=== PATIENT | female | born 1960 | race Caucasian/White ===

== ENCOUNTER 2020-03-11 16:18 | Inpatient (IN) | payer MEDICAID ==
[~2020-03-11] VITALS: Ht 121.9 cm; Wt 51.7 kg
[~2020-03-11 16:18] MED LIST: ACET-3161 GT; FERR-63 PO; HYDR25TA; INSU10VI5 SQ; LEVO50TA8 PO; LORA1TAB PO; PROPANOLOL; VERA180C2 PO
[2020-03-11] MEDS ORDERED: PIPERACILLIN/TAZ 3.375G PREMIX 50 ML IV ONE (17:00)
[2020-03-11] MEDS ORDERED: VANCOMYCIN 1 G PREMIX 200 ML IV ONE (17:00)
[2020-03-11] MEDS ORDERED: ONDANSETRON 4MG ODT PO ONE (17:15)
[2020-03-11] MEDS ORDERED: HYDROCODONE/ACETAMINOPHEN 5/325MG TABLET PO ONE (17:15)
[2020-03-11 17:28] LABS: BASOPHILS % 0.8 % (0.0-2.0); EOSINOPHILS % 3.6 % (0.0-5.0); HEMATOCRIT. 36.5 % (36.0-48.0); LYMPHOCYTES % 18.4 % (20.0-50.0); MEAN CORPUSCULAR HEMOGLOBIN 28.1 pg (28.0-32.0); MEAN PLATELET VOLUME 9.9 fl (7.4-10.4); MONOCYTES % 10.4 % (2.0-8.0); NEUTROPHILS % 66.8 % (40.0-76.0); PLATELET 153 x1000/uL (130-400); RED BLOOD CELL COUNT 4.25 mill/uL (4.2-5.4); RED CELL DISTRIBUTION WIDTH 16.7 % (11.6-14.6)
[2020-03-11 17:34] LABS: CHLORIDE 94 mEq/L (98-107); INR 1.1; PROTHROMBIN TIME 12.3 sec (9.6-11.0)
[2020-03-11] MEDS ORDERED: DOCUSATE SODIUM 100MG CAPSULE PO PRN (19:30)
[2020-03-11] MEDS ORDERED: LORAZEPAM 0.5MG TABLET PO PRN (19:30)
[2020-03-11] MEDS ORDERED: ACETAMINOPHEN 325MG TABLET PO PRN (19:30)
[2020-03-11] MEDS ORDERED: IPRATROPIUM/ALBUTEROL 0.5-3(2.5)MG/3ML NEB HHN PRN (19:30)
[2020-03-11] MEDS ORDERED: CLONIDINE 0.1MG TABLET PO PRN (19:30)
[2020-03-11] MEDS ORDERED: ONDANSETRON HCL 4MG/2ML INJ IV PRN (19:30)
[2020-03-11] MEDS ORDERED: MORPHINE SULFATE 2 MG/ML CPJ (NOT FOR IM USE) IV PRN (19:30)
[2020-03-11 21:00] VITALS: BP 128/78
[2020-03-11 22:00] VITALS: BP 128/78
[2020-03-11] MEDS ORDERED: DEXTROSE 50% WATER 50ML SYRINGE IV PRN (22:15)
[2020-03-12] VITALS: BP 111/56
[2020-03-12 04:00] VITALS: BP 108/53
[2020-03-12] MEDS: BLOOD SUGAR DIAGNOSTIC STRIP TEST SCH ×4 (06:22→20:42)
[2020-03-12 07:22] LABS: HEMATOCRIT. 36.4 % (36.0-48.0); HEMOGLOBIN. 11.8 g/dL (12.0-16.0); MEAN CORPUSCULAR HEMOGLOBIN 27.9 pg (28.0-32.0); MEAN CORPUSCULAR VOLUME 86.4 fL (81.0-99.0); MEAN PLATELET VOLUME 10.3 fl (7.4-10.4); PLATELET 141 x1000/uL (130-400); RED BLOOD CELL COUNT 4.21 mill/uL (4.2-5.4); RED CELL DISTRIBUTION WIDTH 16.8 % (11.6-14.6)
[2020-03-12] MEDS: INSULIN LISPRO 100 UNITS/ML SUBCUT SCH ×4 (07:50→21:01)
[2020-03-12 08:00] VITALS: BP 95/46
[2020-03-12 12:00] VITALS: BP 100/47
[2020-03-12] MEDS: VERAPAMIL HCL 80 MG TABLET PO SCH ×2 (13:00→21:08)
[2020-03-12] MEDS ORDERED: INSULIN GLARGINE UD 100 UNITS/ML SYR SUBCUT SCH (14:00)
[2020-03-12 16:00] VITALS: BP 103/52
[2020-03-12 16:42] LABS: PLATELET ESTIMATE NORMAL
[2020-03-12 20:00] VITALS: BP 101/52
[2020-03-13] VITALS: BP 93/48
[2020-03-13 04:00] VITALS: BP 100/48
[2020-03-13] MEDS: LEVOTHYROXINE SODIUM 50MCG TABLET PO SCH (06:24)
[2020-03-13] MEDS: BLOOD SUGAR DIAGNOSTIC STRIP TEST SCH ×4 (06:28→20:27)
[2020-03-13 06:49] LABS: BASOPHILS % 0.5 % (0.0-2.0); EOSINOPHILS % 6.6 % (0.0-5.0); HEMATOCRIT. 37.4 % (36.0-48.0); HEMOGLOBIN. 12.1 g/dL (12.0-16.0); LYMPHOCYTES % 15.3 % (20.0-50.0); MEAN CORPUSCULAR HEMOGLOBIN 27.9 pg (28.0-32.0); MEAN CORPUSCULAR VOLUME 86.4 fL (81.0-99.0); MEAN PLATELET VOLUME 9.7 fl (7.4-10.4); MONOCYTES % 8.3 % (2.0-8.0); NEUTROPHILS % 69.3 % (40.0-76.0); PLATELET 135 x1000/uL (130-400); RED BLOOD CELL COUNT 4.33 mill/uL (4.2-5.4); RED CELL DISTRIBUTION WIDTH 16.6 % (11.6-14.6)
[2020-03-13] MEDS: INSULIN LISPRO 100 UNITS/ML SUBCUT SCH ×4 (07:50→20:27)
[2020-03-13 08:00] VITALS: BP 102/43
[2020-03-13] MEDS: VERAPAMIL HCL 80 MG TABLET PO SCH ×2 (08:30→20:27)
[2020-03-13 12:00] VITALS: BP 109/53
[2020-03-13] MEDS: INSULIN GLARGINE UD 100 UNITS/ML SYR SUBCUT SCH (14:44)
[2020-03-13 16:00] VITALS: BP 105/52
[2020-03-13] MEDS: HYDROCODONE/ACETAMINOPHEN 5/325MG TABLET PO PRN (16:17)
[2020-03-13 20:00] VITALS: BP 93/46
[2020-03-14] VITALS: BP 106/49
[2020-03-14 04:00] VITALS: BP 97/49
[2020-03-14] MEDS: LEVOTHYROXINE SODIUM 50MCG TABLET PO SCH (06:09)
[2020-03-14] MEDS: HYDROCODONE/ACETAMINOPHEN 5/325MG TABLET PO PRN ×2 (06:11→18:08)
[2020-03-14] MEDS: BLOOD SUGAR DIAGNOSTIC STRIP TEST SCH ×3 (06:14→17:31)
[2020-03-14] MEDS: INSULIN LISPRO 100 UNITS/ML SUBCUT SCH ×3 (06:14→17:31)
[2020-03-14 06:36] LABS: EOSINOPHILS % 10.3 % (0.0-5.0); HEMATOCRIT. 37.1 % (36.0-48.0); LYMPHOCYTES % 19.8 % (20.0-50.0); MEAN CORPUSCULAR HEMOGLOBIN 27.9 pg (28.0-32.0); MEAN CORPUSCULAR VOLUME 86.7 fL (81.0-99.0); MEAN PLATELET VOLUME 10.1 fl (7.4-10.4); MONOCYTES % 9.4 % (2.0-8.0); NEUTROPHILS % 59.5 % (40.0-76.0); PLATELET 142 x1000/uL (130-400); RED BLOOD CELL COUNT 4.28 mill/uL (4.2-5.4); RED CELL DISTRIBUTION WIDTH 17.1 % (11.6-14.6)
[2020-03-14] MEDS: VERAPAMIL HCL 80 MG TABLET PO SCH (09:00)
[2020-03-14] MEDS: INSULIN GLARGINE UD 100 UNITS/ML SYR SUBCUT SCH (11:05)
[2020-03-14 12:00] VITALS: BP 100/46
[2020-03-14 16:00] VITALS: BP 108/51
[2020-03-14 16:27] VITALS: BP 108/51
[2020-03-14 18:08] VITALS: BP 108/51
[2020-03-15] MEDS ORDERED: HYDR-4001 MT (12:03)
== END 2020-03-14 18:46 | disposition home or self-care (01) | DRG 197 ==
LOC: ER 16:18 → 6EST 17:36 → EDBEDREQ 17:39 → EDBEDREQTM 17:39 → ENRESERV 20:10
PROVIDERS: ADMIT Internal Medicine; ATTEND Internal Medicine
PROC: 5A1D70Z Performance of Urinary Filtration, Intermittent, Less than 6 Hours Per Day (ICD-10-PCS; principal; 2020-03-12)
PROC: 5A1D70Z Performance of Urinary Filtration, Intermittent, Less than 6 Hours Per Day (ICD-10-PCS; 2020-03-14)
DX: E11.52 Type 2 diabetes mellitus with diabetic peripheral angiopathy with gangrene (principal); I96 Gangrene, not elsewhere classified; E11.22 Type 2 diabetes mellitus with diabetic chronic kidney disease; I12.0 Hypertensive chronic kidney disease with stage 5 chronic kidney disease or end stage renal disease; N18.6 End stage renal disease; E11.65 Type 2 diabetes mellitus with hyperglycemia; E03.9 Hypothyroidism, unspecified; R79.82 Elevated C-reactive protein (CRP); D64.9 Anemia, unspecified; E87.1 Hypo-osmolality and hyponatremia; Z99.2 Dependence on renal dialysis; Z79.4 Long term (current) use of insulin; Z89.512 Acquired absence of left leg below knee; Z79.899 Other long term (current) drug therapy; Z83.3 Family history of diabetes mellitus; Z89.611 Acquired absence of right leg above knee
CPT/HCPCS: 36415; 71045; 73140; 80048; 80053; 82962; 83036; 83605; 84145; 85025; 85651; 86140; 93005; 93922; 96365; 99285; J1815; J2543; J3370; Q0162

== ENCOUNTER 2020-05-26 16:31 | Inpatient (IN) | payer MEDICAID ==
[~2020-05-26] VITALS: Ht 152.4 cm; Wt 53.5 kg
[~2020-05-26 16:31] MED LIST changes: +HYDR-4001 MT
[2020-05-26 17:32] LABS: BASOPHILS % 0.6 % (0.0-2.0); EOSINOPHILS % 2.2 % (0.0-5.0); HEMATOCRIT. 47.6 % (36.0-48.0); LYMPHOCYTES % 7.8 % (20.0-50.0); MEAN CORPUSCULAR HEMOGLOBIN 27.6 pg (28.0-32.0); MEAN CORPUSCULAR VOLUME 87.6 fL (81.0-99.0); MEAN PLATELET VOLUME 10.3 fl (7.4-10.4); MONOCYTES % 4.9 % (2.0-8.0); NEUTROPHILS % 84.5 % (40.0-76.0); PLATELET 204 x1000/uL (130-400); RED BLOOD CELL COUNT 5.44 mill/uL (4.2-5.4); RED CELL DISTRIBUTION WIDTH 18.3 % (11.6-14.6)
[2020-05-26] MEDS ORDERED: AZITHROMYCIN 500 MG in DEXT 5% WATER 250 ML IV STA (17:42)
[2020-05-26] MEDS ORDERED: CEFTRIAXONE 1 G PREMIX 50 ML IV ONE (17:45)
[2020-05-26 18:45] LABS: CHLORIDE 97 mEq/L (98-107)
[2020-05-26 18:47] LABS: D-DIMER 2.32 mg/L FEU (<0.50); INR 1.4; PROTHROMBIN TIME 14.6 sec (9.6-11.0)
[2020-05-26 18:54] LABS: CREATINE KINASE 71 IU/L (26-192)
[2020-05-26 20:35] VITALS: BP 74/48
[2020-05-26 21:06] VITALS: BP 74/47
[2020-05-26] MEDS ORDERED: LORAZEPAM 0.5MG TABLET PO PRN (23:45)
[2020-05-26] MEDS ORDERED: HYDROCODONE/ACETAMINOPHEN 5/325MG TABLET PO PRN (23:45)
[2020-05-26] MEDS ORDERED: ACETAMINOPHEN 325MG TABLET PO PRN (23:45)
[2020-05-26] MEDS ORDERED: DOCUSATE SODIUM 100MG CAPSULE PO PRN (23:45)
[2020-05-26] MEDS ORDERED: IPRATROPIUM/ALBUTEROL 0.5-3(2.5)MG/3ML NEB HHN PRN (23:45)
[2020-05-26] MEDS ORDERED: CLONIDINE 0.1MG TABLET PO PRN (23:45)
[2020-05-26 23:53] VITALS: BP 81/41
[2020-05-27] MEDS ORDERED: DEXTROSE 50% WATER 50ML SYRINGE IV PRN (00:15)
[2020-05-27] MEDS: SODIUM CHLORIDE 0.9% 1,000 ML IV SCH ×2 (00:39→11:37)
[2020-05-27] MEDS: ACETAMINOPHEN 325MG TABLET PO PRN ×3 (00:58→16:25)
[2020-05-27] MEDS: PIPERACILLIN/TAZOBACTAM 2.25 G in DEXTROSE 5% WATER 50 ML IV SCH ×2 (02:29→09:05)
[2020-05-27 04:00] VITALS: BP 92/51
[2020-05-27] MEDS ORDERED: PIPERACILLIN/TAZOBACTAM 3.375 G/VIAL IV SCH (06:00)
[2020-05-27] MEDS: BLOOD SUGAR DIAGNOSTIC STRIP TEST SCH ×4 (07:08→21:00)
[2020-05-27] MEDS: INSULIN LISPRO 100 UNITS/ML SUBCUT SCH ×4 (07:28→21:00)
[2020-05-27] MEDS: ENOXAPARIN 30MG/0.3ML SYR SUBCUT SCH (08:27)
[2020-05-27 08:30] VITALS: BP 92/49
[2020-05-27 09:41] LABS: BASOPHILS % 0.7 % (0.0-2.0); EOSINOPHILS % 5.2 % (0.0-5.0); HEMOGLOBIN. 13.4 g/dL (12.0-16.0); LYMPHOCYTES % 14.4 % (20.0-50.0); MEAN CORPUSCULAR HEMOGLOBIN 27.9 pg (28.0-32.0); MEAN CORPUSCULAR VOLUME 87.8 fL (81.0-99.0); MONOCYTES % 7.7 % (2.0-8.0); PLATELET 156 x1000/uL (130-400); RED BLOOD CELL COUNT 4.79 mill/uL (4.2-5.4); RED CELL DISTRIBUTION WIDTH 17.1 % (11.6-14.6)
[2020-05-27 10:03] LABS: PHOSPHORUS 3.3 mg/dL (2.5-4.9)
[2020-05-27] MEDS: ONDANSETRON HCL 4MG/2ML INJ IV PRN ×2 (11:37→16:58)
[2020-05-27 12:00] VITALS: BP 103/53
[2020-05-27] MEDS: AZITHROMYCIN 500 MG TABLET PO SCH (14:20)
[2020-05-27] MEDS ORDERED: CEFTRIAXONE 1 G PREMIX 50 ML IV SCH (15:00)
[2020-05-27 16:00] VITALS: BP 116/78
[2020-05-27] MEDS: MORPHINE SULFATE 2 MG/ML CPJ (NOT FOR IM USE) IV PRN (16:58)
[2020-05-27 20:41] VITALS: BP 106/56
[2020-05-28] VITALS: BP 105/51
[2020-05-28] MEDS: ACETAMINOPHEN 325MG TABLET PO PRN (02:02)
[2020-05-28 04:00] VITALS: BP 94/45
[2020-05-28 06:11] LABS: BASOPHILS % 0.7 % (0.0-2.0); HEMATOCRIT. 41.3 % (36.0-48.0); HEMOGLOBIN. 13.1 g/dL (12.0-16.0); LYMPHOCYTES % 12.3 % (20.0-50.0); MEAN CORPUSCULAR HEMOGLOBIN 27.8 pg (28.0-32.0); MEAN CORPUSCULAR VOLUME 87.7 fL (81.0-99.0); MEAN PLATELET VOLUME 10.5 fl (7.4-10.4); PLATELET 164 x1000/uL (130-400); RED CELL DISTRIBUTION WIDTH 17.6 % (11.6-14.6)
[2020-05-28] MEDS: LEVOTHYROXINE SODIUM 50MCG TABLET PO SCH (06:36)
[2020-05-28] MEDS: BLOOD SUGAR DIAGNOSTIC STRIP TEST SCH ×4 (07:46→21:29)
[2020-05-28 08:00] VITALS: BP 124/61
[2020-05-28] MEDS: ENOXAPARIN 30MG/0.3ML SYR SUBCUT SCH (09:00)
[2020-05-28] MEDS: AZITHROMYCIN 500 MG TABLET PO SCH (09:15)
[2020-05-28] MEDS: INSULIN LISPRO 100 UNITS/ML SUBCUT SCH ×4 (09:16→21:00)
[2020-05-28] MEDS: MORPHINE SULFATE 2 MG/ML CPJ (NOT FOR IM USE) IV PRN (09:31)
[2020-05-28 12:00] VITALS: BP 105/51
[2020-05-28 16:00] VITALS: BP 75/28
[2020-05-28] MEDS ORDERED: MIDODRINE HCL 5MG TABLET PO NR (17:15)
[2020-05-28] MEDS ORDERED: ALBUMIN HUMAN 25GM/100ML (25%) IV NR (18:00)
[2020-05-28 20:00] VITALS: BP 91/40
[2020-05-29] VITALS (7 sets, daily range): BP systolic 85–98; BP diastolic 41–44
[2020-05-29] MEDS: LEVOTHYROXINE SODIUM 50MCG TABLET PO SCH (06:11)
[2020-05-29 06:18] LABS: BASOPHILS % 0.4 % (0.0-2.0); EOSINOPHILS % 0.8 % (0.0-5.0); HEMATOCRIT. 41.2 % (36.0-48.0); HEMOGLOBIN. 13.2 g/dL (12.0-16.0); MEAN CORPUSCULAR VOLUME 87.6 fL (81.0-99.0); MEAN PLATELET VOLUME 9.9 fl (7.4-10.4); MONOCYTES % 7.6 % (2.0-8.0); NEUTROPHILS % 83.2 % (40.0-76.0); PLATELET 162 x1000/uL (130-400); RED CELL DISTRIBUTION WIDTH 17.3 % (11.6-14.6)
[2020-05-29] MEDS: INSULIN LISPRO 100 UNITS/ML SUBCUT SCH ×4 (06:19→20:37)
[2020-05-29] MEDS: BLOOD SUGAR DIAGNOSTIC STRIP TEST SCH ×4 (06:19→20:37)
[2020-05-29 06:39] LABS: PHOSPHORUS 3.6 mg/dL (2.5-4.9)
[2020-05-29 06:42] LABS: T4 FREE 0.98 ng/dL (0.76-1.46)
[2020-05-29] MEDS: ONDANSETRON HCL 4MG/2ML INJ IV PRN (07:32)
[2020-05-29] MEDS: ENOXAPARIN 30MG/0.3ML SYR SUBCUT SCH (09:06)
[2020-05-29] MEDS: ACETAMINOPHEN 325MG TABLET PO PRN (16:31)
[2020-05-29] MEDS ORDERED: ALBUMIN HUMAN 25GM/100ML (25%) IV NR (18:30)
[2020-05-30] VITALS (7 sets, daily range): BP systolic 70–105; BP diastolic 33–65
[2020-05-30] MEDS: LEVOTHYROXINE SODIUM 50MCG TABLET PO SCH (06:19)
[2020-05-30] MEDS: BLOOD SUGAR DIAGNOSTIC STRIP TEST SCH ×4 (06:19→21:33)
[2020-05-30 06:24] LABS: BASOPHILS % 0.7 % (0.0-2.0); EOSINOPHILS % 1.4 % (0.0-5.0); HEMATOCRIT. 36.9 % (36.0-48.0); HEMOGLOBIN. 11.8 g/dL (12.0-16.0); LYMPHOCYTES % 21.7 % (20.0-50.0); MEAN CORPUSCULAR HEMOGLOBIN 28.4 pg (28.0-32.0); MEAN CORPUSCULAR VOLUME 88.9 fL (81.0-99.0); MEAN PLATELET VOLUME 10.2 fl (7.4-10.4); NEUTROPHILS % 66.2 % (40.0-76.0); PLATELET 141 x1000/uL (130-400); RED BLOOD CELL COUNT 4.14 mill/uL (4.2-5.4); RED CELL DISTRIBUTION WIDTH 17.7 % (11.6-14.6)
[2020-05-30] MEDS: ENOXAPARIN 30MG/0.3ML SYR SUBCUT SCH (08:20)
[2020-05-30] MEDS: INSULIN LISPRO 100 UNITS/ML SUBCUT SCH ×4 (08:21→21:00)
[2020-05-30 08:59] LABS: TOTAL IRON BINDING CAPACITY 172 ug/dL (250-450)
[2020-05-30] MEDS: MIDODRINE HCL 5MG TABLET PO SCH ×3 (10:40→17:42)
[2020-05-30] MEDS: PANTOPRAZOLE SODIUM 40 MG/VIAL IV SCH (10:40)
[2020-05-30] MEDS: MORPHINE SULFATE 2 MG/ML CPJ (NOT FOR IM USE) IV PRN (20:11)
[2020-05-31] VITALS (42 sets, daily range): BP systolic 36–158; BP diastolic 20–109
[2020-05-31] MEDS: BLOOD SUGAR DIAGNOSTIC STRIP TEST SCH ×5 (05:57→21:48)
[2020-05-31] MEDS: INSULIN LISPRO 100 UNITS/ML SUBCUT SCH ×5 (05:57→22:01)
[2020-05-31] MEDS: LEVOTHYROXINE SODIUM 50MCG TABLET PO SCH (06:07)
[2020-05-31 07:07] LABS: BASOPHILS % 0.3 % (0.0-2.0); EOSINOPHILS % 0.3 % (0.0-5.0); HEMATOCRIT. 40.5 % (36.0-48.0); HEMOGLOBIN. 12.8 g/dL (12.0-16.0); LYMPHOCYTES % 14.1 % (20.0-50.0); MEAN CORPUSCULAR HEMOGLOBIN 28.3 pg (28.0-32.0); MEAN CORPUSCULAR VOLUME 89.8 fL (81.0-99.0); MEAN PLATELET VOLUME 10.4 fl (7.4-10.4); MONOCYTES % 7.3 % (2.0-8.0); PLATELET 202 x1000/uL (130-400); RED BLOOD CELL COUNT 4.51 mill/uL (4.2-5.4); RED CELL DISTRIBUTION WIDTH 17.6 % (11.6-14.6)
[2020-05-31] MEDS: ENOXAPARIN 30MG/0.3ML SYR SUBCUT SCH (09:07)
[2020-05-31] MEDS: PANTOPRAZOLE SODIUM 40 MG/VIAL IV SCH (09:07)
[2020-05-31] MEDS: MIDODRINE HCL 5MG TABLET PO SCH ×3 (09:08→17:21)
[2020-05-31] MEDS ORDERED: ALBUMIN HUMAN 25GM/100ML (25%) IV NR (10:30)
[2020-05-31] MEDS ORDERED: NOREPINEPHRINE 4MG/250ML PMX 250 ML IV ONE (11:00)
[2020-05-31] MEDS ORDERED: DEXT 10% WATER 1,000 ML IV SCH ×3 (11:45→12:00)
[2020-05-31 11:59] LABS: BG BASE EXCESS -8.9 mmol/L (-2.0-2.0); BG CARBOXYHEMOGLOBIN 0.8 % (0.5-1.5); BG DEOXYHEMOGLOBIN 7.4 % (0.0-5.0); BG FRACTION INSPIRED OXYGEN 21; BG HCO3 ACT 17.3 mmol/L (22.0-26.0); BG METHEMOGLOBIN 0.2 % (0.0-1.5); BG OXYGEN SATURATION 92.5 % (92.0-98.5); BG OXYHEMOGLOBIN 91.6 % (94.0-97.0); BG PCO2 38.4 mmHg (35.0-45.0); BG PH 7.271 (7.350-7.450); BG PO2 71.9 mmHg (75.0-100.0); BG SAMPLE SITE RIGHT BRACHIAL; BG TOTAL HEMOGLOBIN 12.8 g/dL (12.0-18.0); BG VENT MODE ROOM AIR
[2020-05-31] MEDS ORDERED: NOREPINEPHRINE 4 MG in DEXTROSE 5% WATER 250 ML IV PRN (12:15)
[2020-05-31] MEDS ORDERED: SODIUM BICARBONATE 8.4% 1 MEQ/ML 50ML SYR IV NR (14:00)
[2020-05-31] MEDS: SODIUM BICARBONATE 100 MEQ in DEXTROSE 5% WATER 1,000 ML IV SCH (15:05)
[2020-05-31] MEDS: AZITHROMYCIN 500 MG in DEXT 5% WATER 250 ML IV SCH (17:20)
[2020-06-01] VITALS (97 sets, daily range): BP systolic 60–156; BP diastolic 16–101
[2020-06-01 06:18] LABS: BASOPHILS % 0.4 % (0.0-2.0); EOSINOPHILS % 0.8 % (0.0-5.0); HEMATOCRIT. 41.4 % (36.0-48.0); LYMPHOCYTES % 15.2 % (20.0-50.0); MEAN CORPUSCULAR HEMOGLOBIN 27.8 pg (28.0-32.0); MEAN CORPUSCULAR VOLUME 88.8 fL (81.0-99.0); MEAN PLATELET VOLUME 9.3 fl (7.4-10.4); MONOCYTES % 9.2 % (2.0-8.0); NEUTROPHILS % 74.4 % (40.0-76.0); PLATELET 167 x1000/uL (130-400); RED BLOOD CELL COUNT 4.66 mill/uL (4.2-5.4); RED CELL DISTRIBUTION WIDTH 17.8 % (11.6-14.6)
[2020-06-01] MEDS: BLOOD SUGAR DIAGNOSTIC STRIP TEST SCH ×4 (07:25→21:16)
[2020-06-01] MEDS: INSULIN LISPRO 100 UNITS/ML SUBCUT SCH ×4 (07:26→21:00)
[2020-06-01] MEDS: LEVOTHYROXINE SODIUM 50MCG TABLET PO SCH (07:50)
[2020-06-01] MEDS: MIDODRINE HCL 5MG TABLET PO SCH ×3 (08:06→16:13)
[2020-06-01] MEDS: ENOXAPARIN 30MG/0.3ML SYR SUBCUT SCH (08:06)
[2020-06-01] MEDS: PANTOPRAZOLE SODIUM 40 MG/VIAL IV SCH (09:06)
[2020-06-01] MEDS: NOREPINEPHRINE 16 MG in DEXT 5% WATER 234 ML IV PRN (10:38)
[2020-06-01 11:08] LABS: INR 1.8; PARTIAL THROMBOPLASTIN TIME 41.1 sec (23.4-31.0); PROTHROMBIN TIME 18.7 sec (9.6-11.0)
[2020-06-01] MEDS: AZITHROMYCIN 500 MG in DEXT 5% WATER 250 ML IV SCH (16:13)
[2020-06-01] MEDS ORDERED: PHYTONADIONE 10MG/ML AMP SUBCUT NR (18:00)
[2020-06-01] MEDS: SODIUM BICARBONATE 100 MEQ in DEXTROSE 5% WATER 1,000 ML IV SCH (21:06)
[2020-06-02] VITALS (100 sets, daily range): BP systolic 60–201; BP diastolic 14–131
[2020-06-02 06:35] LABS: BASOPHILS % 0.2 % (0.0-2.0); EOSINOPHILS % 1.1 % (0.0-5.0); HEMATOCRIT. 36.5 % (36.0-48.0); HEMOGLOBIN. 11.6 g/dL (12.0-16.0); LYMPHOCYTES % 15.3 % (20.0-50.0); MEAN CORPUSCULAR VOLUME 87.9 fL (81.0-99.0); MONOCYTES % 9.7 % (2.0-8.0); NEUTROPHILS % 73.7 % (40.0-76.0); PLATELET 151 x1000/uL (130-400); RED BLOOD CELL COUNT 4.15 mill/uL (4.2-5.4); RED CELL DISTRIBUTION WIDTH 17.5 % (11.6-14.6)
[2020-06-02 06:44] LABS: INR 1.6; PROTHROMBIN TIME 16.3 sec (9.6-11.0)
[2020-06-02] MEDS: INSULIN LISPRO 100 UNITS/ML SUBCUT SCH ×4 (07:18→20:55)
[2020-06-02] MEDS: BLOOD SUGAR DIAGNOSTIC STRIP TEST SCH ×4 (07:18→20:55)
[2020-06-02] MEDS: LEVOTHYROXINE SODIUM 50MCG TABLET PO SCH (07:50)
[2020-06-02] MEDS: PANTOPRAZOLE SODIUM 40 MG/VIAL IV SCH (08:13)
[2020-06-02] MEDS: ENOXAPARIN 30MG/0.3ML SYR SUBCUT SCH (09:00)
[2020-06-02] MEDS: MIDODRINE HCL 5MG TABLET PO SCH ×3 (09:50→17:16)
[2020-06-02] MEDS: NOREPINEPHRINE 16 MG in DEXT 5% WATER 234 ML IV PRN (11:10)
[2020-06-02] MEDS: ACETAMINOPHEN 325MG TABLET PO PRN (15:49)
[2020-06-02] MEDS: AZITHROMYCIN 500 MG in DEXT 5% WATER 250 ML IV SCH (16:24)
[2020-06-02] MEDS: SODIUM BICARBONATE 100 MEQ in DEXTROSE 5% WATER 1,000 ML IV SCH (20:57)
[2020-06-03] VITALS (88 sets, daily range): BP systolic 57–156; BP diastolic 18–114
[2020-06-03 06:32] LABS: BASOPHILS % 0.6 % (0.0-2.0); EOSINOPHILS % 3.9 % (0.0-5.0); HEMATOCRIT. 36.7 % (36.0-48.0); HEMOGLOBIN. 11.6 g/dL (12.0-16.0); LYMPHOCYTES % 17.6 % (20.0-50.0); MEAN CORPUSCULAR HEMOGLOBIN 27.7 pg (28.0-32.0); MEAN CORPUSCULAR VOLUME 87.8 fL (81.0-99.0); MEAN PLATELET VOLUME 8.5 fl (7.4-10.4); MONOCYTES % 5.7 % (2.0-8.0); NEUTROPHILS % 72.2 % (40.0-76.0); PLATELET 106 x1000/uL (130-400); RED BLOOD CELL COUNT 4.18 mill/uL (4.2-5.4); RED CELL DISTRIBUTION WIDTH 17.9 % (11.6-14.6)
[2020-06-03] MEDS: BLOOD SUGAR DIAGNOSTIC STRIP TEST SCH ×4 (08:20→20:17)
[2020-06-03] MEDS: INSULIN LISPRO 100 UNITS/ML SUBCUT SCH ×4 (08:20→20:23)
[2020-06-03] MEDS: PANTOPRAZOLE SODIUM 40 MG/VIAL IV SCH (08:29)
[2020-06-03] MEDS: LEVOTHYROXINE SODIUM 50MCG TABLET PO SCH (08:30)
[2020-06-03] MEDS: ENOXAPARIN 30MG/0.3ML SYR SUBCUT SCH (08:30)
[2020-06-03] MEDS: MIDODRINE HCL 5MG TABLET PO SCH ×3 (08:31→16:39)
[2020-06-03] MEDS ORDERED: POTASSIUM CHLORIDE 20MEQ TABLET SR PO SCH (10:00)
[2020-06-03] MEDS: AZITHROMYCIN 500 MG in DEXT 5% WATER 250 ML IV SCH (16:40)
[2020-06-04] VITALS (89 sets, daily range): BP systolic 50–178; BP diastolic 23–119
[2020-06-04] MEDS: SODIUM BICARBONATE 100 MEQ in DEXTROSE 5% WATER 1,000 ML IV SCH (01:52)
[2020-06-04 05:49] LABS: BASOPHILS % 0.5 % (0.0-2.0); EOSINOPHILS % 3.6 % (0.0-5.0); HEMATOCRIT. 37.8 % (36.0-48.0); HEMOGLOBIN. 12.1 g/dL (12.0-16.0); LYMPHOCYTES % 15.8 % (20.0-50.0); MEAN CORPUSCULAR HEMOGLOBIN 28.2 pg (28.0-32.0); MEAN CORPUSCULAR VOLUME 88.2 fL (81.0-99.0); MEAN PLATELET VOLUME 8.6 fl (7.4-10.4); MONOCYTES % 6.2 % (2.0-8.0); NEUTROPHILS % 73.9 % (40.0-76.0); PLATELET 94 x1000/uL (130-400); RED BLOOD CELL COUNT 4.28 mill/uL (4.2-5.4); RED CELL DISTRIBUTION WIDTH 17.5 % (11.6-14.6)
[2020-06-04] MEDS: NOREPINEPHRINE 16 MG in DEXT 5% WATER 234 ML IV PRN (06:35)
[2020-06-04] MEDS: BLOOD SUGAR DIAGNOSTIC STRIP TEST SCH ×4 (08:14→21:30)
[2020-06-04] MEDS: INSULIN LISPRO 100 UNITS/ML SUBCUT SCH ×4 (08:55→21:00)
[2020-06-04] MEDS: PANTOPRAZOLE SODIUM 40 MG/VIAL IV SCH (08:56)
[2020-06-04] MEDS: MIDODRINE HCL 5MG TABLET PO SCH ×3 (08:56→17:57)
[2020-06-04] MEDS: LEVOTHYROXINE SODIUM 50MCG TABLET PO SCH (08:56)
[2020-06-04] MEDS: ENOXAPARIN 30MG/0.3ML SYR SUBCUT SCH (09:31)
[2020-06-04] MEDS: AZITHROMYCIN 500 MG in DEXT 5% WATER 250 ML IV SCH (16:33)
[2020-06-04] MEDS: MORPHINE SULFATE 2 MG/ML CPJ (NOT FOR IM USE) IV PRN (23:19)
[2020-06-05] VITALS (94 sets, daily range): BP systolic 35–161; BP diastolic 13–113
[2020-06-05] MEDS: SODIUM BICARBONATE 100 MEQ in DEXTROSE 5% WATER 1,000 ML IV SCH (06:14)
[2020-06-05] MEDS: MORPHINE SULFATE 2 MG/ML CPJ (NOT FOR IM USE) IV PRN ×2 (06:35→20:59)
[2020-06-05 06:46] LABS: HEMATOCRIT 40.5 % (36.0-48.0); HEMOGLOBIN 12.7 g/dL (12.0-16.0); MEAN CORPUSCULAR HEMOGLOBIN 27.8 pg (28.0-32.0); MEAN CORPUSCULAR VOLUME 88.9 fL (81.0-99.0); PLATELET 94 x1000/uL (130-400); RED BLOOD CELL COUNT 4.55 mill/uL (4.2-5.4); RED CELL DISTRIBUTION WIDTH 17.8 % (11.6-14.6)
[2020-06-05] MEDS: BLOOD SUGAR DIAGNOSTIC STRIP TEST SCH ×4 (07:50→20:31)
[2020-06-05] MEDS: PANTOPRAZOLE SODIUM 40 MG/VIAL IV SCH (08:14)
[2020-06-05] MEDS: LEVOTHYROXINE SODIUM 50MCG TABLET PO SCH (08:15)
[2020-06-05] MEDS: MIDODRINE HCL 5MG TABLET PO SCH ×3 (08:16→17:36)
[2020-06-05] MEDS: ENOXAPARIN 30MG/0.3ML SYR SUBCUT SCH (08:17)
[2020-06-05] MEDS: INSULIN LISPRO 100 UNITS/ML SUBCUT SCH ×4 (08:18→20:36)
[2020-06-05] MEDS: NOREPINEPHRINE 16 MG in DEXT 5% WATER 234 ML IV PRN (11:52)
[2020-06-06] VITALS (107 sets, daily range): BP systolic 53–148; BP diastolic 14–110
[2020-06-06] MEDS: MORPHINE SULFATE 2 MG/ML CPJ (NOT FOR IM USE) IV PRN ×3 (03:34→20:09)
[2020-06-06 05:39] LABS: BASOPHILS % 0.5 % (0.0-2.0); EOSINOPHILS % 7.4 % (0.0-5.0); HEMATOCRIT. 36.5 % (36.0-48.0); HEMOGLOBIN. 11.5 g/dL (12.0-16.0); LYMPHOCYTES % 7.4 % (20.0-50.0); MEAN CORPUSCULAR VOLUME 88.6 fL (81.0-99.0); MEAN PLATELET VOLUME 9.2 fl (7.4-10.4); MONOCYTES % 5.5 % (2.0-8.0); NEUTROPHILS % 79.2 % (40.0-76.0); PLATELET 74 x1000/uL (130-400); RED BLOOD CELL COUNT 4.11 mill/uL (4.2-5.4); RED CELL DISTRIBUTION WIDTH 17.8 % (11.6-14.6)
[2020-06-06] MEDS: BLOOD SUGAR DIAGNOSTIC STRIP TEST SCH ×4 (08:06→21:06)
[2020-06-06] MEDS: INSULIN LISPRO 100 UNITS/ML SUBCUT SCH ×4 (08:06→21:07)
[2020-06-06] MEDS: LEVOTHYROXINE SODIUM 50MCG TABLET PO SCH (08:06)
[2020-06-06] MEDS: PANTOPRAZOLE SODIUM 40 MG/VIAL IV SCH (08:30)
[2020-06-06] MEDS: MULTIVITAMINS,THER W-MINERALS TABLET PO SCH (08:30)
[2020-06-06] MEDS: MIDODRINE HCL 5MG TABLET PO SCH ×2 (08:31→13:11)
[2020-06-06] MEDS: ENOXAPARIN 30MG/0.3ML SYR SUBCUT SCH (08:31)
[2020-06-06] MEDS: HYDROCODONE/ACETAMINOPHEN 5/325MG TABLET PO PRN (13:12)
[2020-06-06] MEDS ORDERED: DOPAMINE 400MG/250ML PREMIX 250 ML IV NR (16:45)
[2020-06-06] MEDS: DOBUTAMINE 250MG PREMIX 250 ML IV PRN (17:00)
[2020-06-06] MEDS ORDERED: PHENYLEPHRINE 10 MG in DEXT 5% WATER 249 ML IV PRN (17:45)
[2020-06-06] MEDS: PHENYLEPHRINE 80 MG in DEXT 5% WATER 492 ML IV PRN (20:10)
[2020-06-06] MEDS: ATORVASTATIN CALCIUM 40MG TABLET PO SCH (21:06)
[2020-06-07] VITALS (102 sets, daily range): BP systolic 68–174; BP diastolic 16–145
[2020-06-07] MEDS ORDERED: CEFTRIAXONE 1 G PREMIX 50 ML IV SCH (02:00)
[2020-06-07] MEDS: CEFTRIAXONE 1,000 MG in DEXTROSE 5% WATER 50 ML IV SCH (02:38)
[2020-06-07] MEDS: DOXYCYCLINE 100 MG in DEXT 5% WATER 100 ML IV SCH ×2 (03:31→16:19)
[2020-06-07] MEDS: MORPHINE SULFATE 2 MG/ML CPJ (NOT FOR IM USE) IV PRN ×2 (03:53→13:36)
[2020-06-07] MEDS: HYDROCODONE/ACETAMINOPHEN 5/325MG TABLET PO PRN (04:43)
[2020-06-07] MEDS: PHENYLEPHRINE 80 MG in DEXT 5% WATER 492 ML IV PRN ×2 (08:18→17:19)
[2020-06-07] MEDS: BLOOD SUGAR DIAGNOSTIC STRIP TEST SCH ×4 (08:21→20:23)
[2020-06-07] MEDS: MULTIVITAMINS,THER W-MINERALS TABLET PO SCH (08:27)
[2020-06-07] MEDS: INSULIN LISPRO 100 UNITS/ML SUBCUT SCH ×4 (08:27→20:26)
[2020-06-07] MEDS: PANTOPRAZOLE SODIUM 40 MG/VIAL IV SCH (08:27)
[2020-06-07] MEDS: LEVOTHYROXINE SODIUM 50MCG TABLET PO SCH (08:27)
[2020-06-07 09:34] LABS: HEMATOCRIT. 36.8 % (36.0-48.0); HEMOGLOBIN. 11.6 g/dL (12.0-16.0); MEAN CORPUSCULAR HEMOGLOBIN 28.4 pg (28.0-32.0); MEAN CORPUSCULAR VOLUME 89.8 fL (81.0-99.0); MEAN PLATELET VOLUME 9.3 fl (7.4-10.4); PLATELET 65 x1000/uL (130-400)
[2020-06-07] MEDS: DOCUSATE SODIUM 250MG CAPSULE PO SCH (11:05)
[2020-06-07 11:47] LABS: NUCLEATED RED BLOOD CELLS 1 /100 WBC; PLATELET ESTIMATE DECREASED
[2020-06-07] MEDS: ATORVASTATIN CALCIUM 40MG TABLET PO SCH (20:26)
[2020-06-08] VITALS (99 sets, daily range): BP systolic 42–138; BP diastolic 20–104
[2020-06-08] MEDS: DOXYCYCLINE 100 MG in DEXT 5% WATER 100 ML IV SCH ×2 (01:17→13:38)
[2020-06-08] MEDS: CEFTRIAXONE 1,000 MG in DEXTROSE 5% WATER 50 ML IV SCH (01:17)
[2020-06-08] MEDS: MORPHINE SULFATE 2 MG/ML CPJ (NOT FOR IM USE) IV PRN (04:09)
[2020-06-08 05:01] LABS: BASOPHILS % 0.6 % (0.0-2.0); EOSINOPHILS % 7.6 % (0.0-5.0); HEMATOCRIT. 33.5 % (36.0-48.0); HEMOGLOBIN. 10.5 g/dL (12.0-16.0); LYMPHOCYTES % 9.4 % (20.0-50.0); MEAN CORPUSCULAR HEMOGLOBIN 28.3 pg (28.0-32.0); MEAN CORPUSCULAR VOLUME 90.4 fL (81.0-99.0); MEAN PLATELET VOLUME 9.1 fl (7.4-10.4); NEUTROPHILS % 73.4 % (40.0-76.0); PLATELET 67 x1000/uL (130-400); RED BLOOD CELL COUNT 3.71 mill/uL (4.2-5.4); RED CELL DISTRIBUTION WIDTH 18.4 % (11.6-14.6)
[2020-06-08] MEDS: HYDROCODONE/ACETAMINOPHEN 5/325MG TABLET PO PRN (05:18)
[2020-06-08] MEDS: INSULIN LISPRO 100 UNITS/ML SUBCUT SCH ×4 (06:48→21:23)
[2020-06-08] MEDS: BLOOD SUGAR DIAGNOSTIC STRIP TEST SCH ×4 (06:48→21:13)
[2020-06-08] MEDS: DOPAMINE 800MG PREMIX (DOUBLE) 250 ML IV PRN (06:52)
[2020-06-08] MEDS: PANTOPRAZOLE SODIUM 40 MG/VIAL IV SCH (08:35)
[2020-06-08] MEDS: MULTIVITAMINS,THER W-MINERALS TABLET PO SCH (08:35)
[2020-06-08] MEDS: DOCUSATE SODIUM 250MG CAPSULE PO SCH (08:35)
[2020-06-08] MEDS: LEVOTHYROXINE SODIUM 50MCG TABLET PO SCH (08:36)
[2020-06-08] MEDS: PHENYLEPHRINE 80 MG in DEXT 5% WATER 492 ML IV PRN (08:51)
[2020-06-08] MEDS: DOBUTAMINE 250MG PREMIX 250 ML IV PRN (13:39)
[2020-06-08] MEDS: ATORVASTATIN CALCIUM 40MG TABLET PO SCH (21:22)
[2020-06-09] VITALS (104 sets, daily range): BP systolic 56–234; BP diastolic 24–177
[2020-06-09] MEDS: CEFTRIAXONE 1,000 MG in DEXTROSE 5% WATER 50 ML IV SCH (02:00)
[2020-06-09] MEDS: DOXYCYCLINE 100 MG in DEXT 5% WATER 100 ML IV SCH (03:00)
[2020-06-09] MEDS: PHENYLEPHRINE 80 MG in DEXT 5% WATER 492 ML IV PRN ×2 (05:37→13:02)
[2020-06-09] MEDS: DOBUTAMINE 250MG PREMIX 250 ML IV PRN (06:13)
[2020-06-09 06:30] LABS: HEMATOCRIT. 33.4 % (36.0-48.0); HEMOGLOBIN. 10.5 g/dL (12.0-16.0); MEAN CORPUSCULAR HEMOGLOBIN 28.1 pg (28.0-32.0); MEAN CORPUSCULAR VOLUME 89.5 fL (81.0-99.0); MEAN PLATELET VOLUME 9.4 fl (7.4-10.4); PLATELET 64 x1000/uL (130-400); RED BLOOD CELL COUNT 3.73 mill/uL (4.2-5.4); RED CELL DISTRIBUTION WIDTH 19.4 % (11.6-14.6)
[2020-06-09] MEDS: BLOOD SUGAR DIAGNOSTIC STRIP TEST SCH ×4 (06:36→21:00)
[2020-06-09 08:08] LABS: PLATELET ESTIMATE DECREASED
[2020-06-09] MEDS: LEVOTHYROXINE SODIUM 50MCG TABLET PO SCH (09:21)
[2020-06-09] MEDS: PANTOPRAZOLE SODIUM 40 MG/VIAL IV SCH (09:21)
[2020-06-09] MEDS: DOCUSATE SODIUM 250MG CAPSULE PO SCH (09:21)
[2020-06-09] MEDS: MULTIVITAMINS,THER W-MINERALS TABLET PO SCH (09:21)
[2020-06-09] MEDS: INSULIN LISPRO 100 UNITS/ML SUBCUT SCH ×4 (09:51→21:00)
[2020-06-09] MEDS: ONDANSETRON HCL 4MG/2ML INJ IV PRN ×2 (09:52→18:08)
[2020-06-09] MEDS: DOPAMINE 800MG PREMIX (DOUBLE) 250 ML IV PRN ×2 (10:52→19:06)
[2020-06-09] MEDS: CEFEPIME 1,000 MG in DEXTROSE 5% WATER 50 ML IV SCH (13:08)
[2020-06-09] MEDS ORDERED: METOCLOPRAMIDE HCL 10MG/2ML VIAL IV PRN (19:00)
[2020-06-09] MEDS ORDERED: CEFEPIME HCL 1000MG/VIAL INJ IM SCH (21:00)
[2020-06-09] MEDS: ATORVASTATIN CALCIUM 40MG TABLET PO SCH (22:36)
[2020-06-10] VITALS (97 sets, daily range): BP systolic 56–157; BP diastolic 22–131
[2020-06-10] MEDS: ONDANSETRON HCL 4MG/2ML INJ IV PRN ×2 (00:12→16:56)
[2020-06-10] MEDS: PHENYLEPHRINE 80 MG in DEXT 5% WATER 492 ML IV PRN (04:40)
[2020-06-10] MEDS: DOPAMINE 800MG PREMIX (DOUBLE) 250 ML IV PRN ×2 (04:41→13:09)
[2020-06-10] MEDS: DOBUTAMINE 250MG PREMIX 250 ML IV PRN ×2 (04:43→13:09)
[2020-06-10 06:26] LABS: BASOPHILS % 0.4 % (0.0-2.0); EOSINOPHILS % 2.3 % (0.0-5.0); HEMATOCRIT. 32.4 % (36.0-48.0); HEMOGLOBIN. 10.5 g/dL (12.0-16.0); LYMPHOCYTES % 7.1 % (20.0-50.0); MEAN CORPUSCULAR HEMOGLOBIN 28.3 pg (28.0-32.0); MEAN CORPUSCULAR VOLUME 87.7 fL (81.0-99.0); MEAN PLATELET VOLUME 9.2 fl (7.4-10.4); MONOCYTES % 9.8 % (2.0-8.0); NEUTROPHILS % 80.4 % (40.0-76.0); PLATELET 76 x1000/uL (130-400); RED BLOOD CELL COUNT 3.69 mill/uL (4.2-5.4); RED CELL DISTRIBUTION WIDTH 18.7 % (11.6-14.6)
[2020-06-10] MEDS: BLOOD SUGAR DIAGNOSTIC STRIP TEST SCH ×2 (08:06→12:09)
[2020-06-10] MEDS: INSULIN LISPRO 100 UNITS/ML SUBCUT SCH ×2 (08:06→12:10)
[2020-06-10] MEDS: PANTOPRAZOLE SODIUM 40 MG/VIAL IV SCH (09:08)
[2020-06-10] MEDS: LEVOTHYROXINE SODIUM 50MCG TABLET PO SCH (09:09)
[2020-06-10] MEDS: MULTIVITAMINS,THER W-MINERALS TABLET PO SCH (09:09)
[2020-06-10] MEDS: DOCUSATE SODIUM 250MG CAPSULE PO SCH (09:11)
[2020-06-10] MEDS ORDERED: PHENYLEPHRINE 80 MG in DEXT 5% WATER 492 ML IV PRN (10:53)
[2020-06-10] MEDS ORDERED: PHENYLEPHRINE 40 MG in DEXTROSE 5% WATER 250 ML IV PRN (11:15)
[2020-06-10] MEDS: CEFEPIME 1,000 MG in DEXTROSE 5% WATER 50 ML IV SCH (13:13)
[2020-06-10] MEDS: MORPHINE SULFATE 2 MG/ML CPJ (NOT FOR IM USE) IV PRN ×2 (16:11→17:57)
[2020-06-10] MEDS ORDERED: MORPHINE SULFATE 250 MG in DEXT 5% WATER 240 ML IV PRN (18:05)
[2020-06-10] MEDS ORDERED: MORPHINE SULFATE 250 MG in DEXT 5% WATER 225 ML IV PRN (18:07)
[2020-06-10] MEDS: LORAZEPAM 2MG/ML CPJ IV PRN (20:26)
[2020-06-11] VITALS (17 sets, daily range): BP systolic 85–120; BP diastolic 29–60
[2020-06-11 06:31] LABS: BASOPHILS % 0.2 % (0.0-2.0); EOSINOPHILS % 1.2 % (0.0-5.0); HEMOGLOBIN. 8.7 g/dL (12.0-16.0); LYMPHOCYTES % 9.2 % (20.0-50.0); MEAN CORPUSCULAR HEMOGLOBIN 28.5 pg (28.0-32.0); MEAN CORPUSCULAR VOLUME 88.2 fL (81.0-99.0); MEAN PLATELET VOLUME 9.8 fl (7.4-10.4); MONOCYTES % 10.5 % (2.0-8.0); NEUTROPHILS % 78.9 % (40.0-76.0); PLATELET 54 x1000/uL (130-400); RED BLOOD CELL COUNT 3.06 mill/uL (4.2-5.4); RED CELL DISTRIBUTION WIDTH 18.8 % (11.6-14.6)
[2020-06-12] VITALS: BP 56/24
[2020-06-12 04:00] VITALS: BP 89/40
[2020-06-12 08:00] VITALS: BP_SYST 125; BP_SYST 43; BP_DIAS 22; BP_DIAS 86
[2020-06-12] MEDS: LORAZEPAM 2MG/ML CPJ IV PRN (08:23)
[2020-06-12 12:00] VITALS: BP 49/20
[2020-06-12] MEDS: ATROPINE SULFATE 1% OPHTH 2ML SL PRN (15:50)
[2020-06-12 16:00] VITALS: BP 69/11
[2020-06-12 20:00] VITALS: BP 88/52
[2020-06-13] VITALS: BP 53/20
[2020-06-13] MEDS: ATROPINE SULFATE 1% OPHTH 2ML SL PRN (02:27)
[2020-06-13 04:00] VITALS: BP 57/21
[2020-06-13 08:00] VITALS: BP 74/22
[2020-06-13] MEDS: LORAZEPAM 2MG/ML CPJ IV PRN (11:16)
[2020-06-13 12:00] VITALS: BP 62/24
[2020-06-13 16:00] VITALS: BP 54/21
[2020-06-13 20:00] VITALS: BP 41/17
== END 2020-06-14 02:16 | disposition expired | DRG 720 ==
LOC: ER 16:31 → 7WST 18:12 → ENRESERV 19:12 → 6WST 05-27 23:35 → CVICU 05-31 12:28 → 6EST 06-11 06:51
PROVIDERS: ADMIT Internal Medicine; ATTEND Internal Medicine
PROC: 02H633Z Insertion of Infusion Device into Right Atrium, Percutaneous Approach (ICD-10-PCS; principal; 2020-05-31)
PROC: B548ZZA Ultrasonography of Superior Vena Cava, Guidance (ICD-10-PCS; 2020-05-31)
PROC: 0W9B3ZZ Drainage of Left Pleural Cavity, Percutaneous Approach (ICD-10-PCS; 2020-06-02)
DX: A41.9 Sepsis, unspecified organism (principal); J96.00 Acute respiratory failure, unspecified whether with hypoxia or hypercapnia; N18.6 End stage renal disease; E11.22 Type 2 diabetes mellitus with diabetic chronic kidney disease; D68.9 Coagulation defect, unspecified; E03.9 Hypothyroidism, unspecified; I25.10 Atherosclerotic heart disease of native coronary artery without angina pectoris; K83.8 Other specified diseases of biliary tract; R18.8 Other ascites; E11.51 Type 2 diabetes mellitus with diabetic peripheral angiopathy without gangrene; I50.23 Acute on chronic systolic (congestive) heart failure; E87.2 Acidosis; D64.9 Anemia, unspecified; D72.810 Lymphocytopenia; R74.8 Abnormal levels of other serum enzymes; R13.10 Dysphagia, unspecified; I27.81 Cor pulmonale (chronic); R57.0 Cardiogenic shock; D69.6 Thrombocytopenia, unspecified; I42.0 Dilated cardiomyopathy; Z66 Do not resuscitate; E72.20 Disorder of urea cycle metabolism, unspecified; R74.0 Nonspecific elevation of levels of transaminase and lactic acid dehydrogenase [LDH]; Z51.5 Encounter for palliative care; I13.2 Hypertensive heart and chronic kidney disease with heart failure and with stage 5 chronic kidney disease, or end stage renal disease; R07.0 Pain in throat; E11.649 Type 2 diabetes mellitus with hypoglycemia without coma; E87.1 Hypo-osmolality and hyponatremia; I36.1 Nonrheumatic tricuspid (valve) insufficiency; Z89.611 Acquired absence of right leg above knee; Z89.512 Acquired absence of left leg below knee; Z99.2 Dependence on renal dialysis; Z79.891 Long term (current) use of opiate analgesic; Z79.4 Long term (current) use of insulin; Z79.1 Long term (current) use of non-steroidal anti-inflammatories (NSAID); Z79.899 Other long term (current) drug therapy; Z83.3 Family history of diabetes mellitus; Z95.5 Presence of coronary angioplasty implant and graft; Z79.890 Hormone replacement therapy; I25.2 Old myocardial infarction; Z91.15 Patient's noncompliance with renal dialysis; Z03.818 Encounter for observation for suspected exposure to other biological agents ruled out
CPT/HCPCS: 32555; 36415; 36600; 70490; 71045; 71275; 74018; 74176; 74181; 76700; 76937; 80048; 80053; 80076; 82140; 82248; 82375; 82533; 82550; 82728; 82805; 82962; 83036; 83540; 83550; 83605; 83615; 83735; 83880; 84100; 84145; 84439; 84443; 84481; 84484; 85025; 85027; 85379; 85384; 86140; 86850; 86900; 87070; 87077; 87186; 92610; 93005; 93306; 93922; 96365; 99291; C1725; C9113; J0456; J0692; J0696; J1250; J1265; J1650; J1815; J2060; J2270; J2370; J2405; J2543; J2765; J3430; J3490; J7030; J7060; J7070; P9047; U0003-CS